=== PATIENT | female | born 1945 | race Caucasian/White ===

== ENCOUNTER 2017-05-16 19:43 | Inpatient (IN) | payer MEDICARE ==
[~2017-05-16] VITALS: Ht 165.1 cm; Wt 79.7 kg
[2017-05-16] MEDS ORDERED: VENL-193 PO (20:00)
[2017-05-16] MEDS ORDERED: VENL50TA44 PO (20:00)
[2017-05-16] MEDS ORDERED: GABA-531 PO (20:00)
[2017-05-16 21:45] LABS: BASOPHILS % (AUTO) 0.4 % (0.0-2.0); HEMATOCRIT 43.3 % (36-46); HEMOGLOBIN 14.5 g/dL (12.0-16.0); LYMPHOCYTES # (AUTO) 1.9 K/uL (1.0-4.8); MEAN CORPUSCULAR HGB CONC 33.6 G/dL (31.0-37.0); MEAN CORPUSCULAR VOLUME 92 fL (80-100); MONOCYTES # (AUTO) 0.7 K/uL (0.1-1.0); MONOCYTES % (AUTO) 9.8 % (2.0-9.0); NEUTROPHILS # (AUTO) 4.4 K/uL (1.8-7.7); NEUTROPHILS % (AUTO) 60.8 % (40.0-70.0); PLATELET COUNT (AUTO) 367 K/uL (150-450); RED BLOOD CELL COUNT(AUTO) 4.69 MIL/uL (4.00-5.20); WHITE BLOOD COUNT (AUTO) 7.2 K/uL (4.5-11.0)
[2017-05-16 21:48] LABS: ANION GAP 7 mmol/L (8-16); CALCIUM, TOTAL 9.5 mg/dL (8.8-10.5); CARBON DIOXIDE 29 mmol/L (22-29); CHLORIDE 102 mmol/L (98-107); CREATININE 0.75 mg/dL (0.60-1.30); GLOMERULAR FILTR. RATE CALC > 60 mL/min (>60); POTASSIUM 4.1 mmol/L (3.5-5.1); SODIUM SERUM 138 mmol/L (136-145); UREA NITROGEN, BLOOD 14 mg/dL (7-18)
[2017-05-16 21:53] LABS: ALANINE AMINOTRANSFERASE 27 U/L (12-78); ALBUMIN 3.8 g/dL (3.4-5.0); ASPARTATE AMINOTRANSFERASE 22 U/L (15-37); BILIRUBIN,TOTAL 0.2 mg/dL (0.1-1.0); TOTAL PROTEIN, SERUM 7.7 g/dL (6.4-8.2)
[2017-05-17] MEDS ORDERED: ZOLPIDEM TARTRATE 10 MG TABLET PO PRN (01:00)
[2017-05-17] MEDS ORDERED: OLANZapine 5 MG RAPDIS TABLET PO PRN (01:00)
[2017-05-17] MEDS ORDERED: LORazepam 2 MG TABLET PO PRN (01:00)
[2017-05-17 01:45] LABS: APPEARANCE,URINE CLOUDY (CLEAR); GLUCOSE, URINE (UA) NEGATIVE (NEGATIVE); KETONES,URINE NEGATIVE (NEGATIVE); LEUKOCYTE ESTERASE ,URINE SMALL (NEGATIVE); OCCULT BLOOD,URINE NEGATIVE (NEGATIVE); PROTEIN,URINE NEGATIVE (NEGATIVE)
[2017-05-17 01:45] LABS: CHOL/HDL RATIO 3.6 (3.9-5.7); THYROID STIMULATING HORMONE 2.65 uIU/mL (0.36-3.74)
[2017-05-17 01:52] LABS: ADD UA MICROSCOPIC YES
[2017-05-17 01:56] LABS: RBC,URINE 0-2 /HPF (0-2); SQUAMOUS EPITHELIAL CELL,UR Few /LPF (None Seen)
[2017-05-17 04:04] VITALS: BP 154/83
[2017-05-17] MEDS ORDERED: PNEUMOCOCCAL VACCINE POLYVALENT 0.5 ML VIAL [PPSV23] IM ONE (04:30)
[2017-05-17] MEDS ORDERED: INFLUENZA VIRUS VACCINE QVS 2017-18 (3YR+)/PF 60 MCG/0.5 ML SYRINGE IM ONE (04:30)
[2017-05-17 08:05] VITALS: BP 135/71
[2017-05-17] MEDS ORDERED: GuaiFENesin/D-METHORPHAN [SUGAR-FREE] 200-20MG/10 ML SYRUP UDCUP PO PRN (10:00)
[2017-05-17] MEDS ORDERED: PROMETHAZINE HCL 25 MG TABLET PO PRN (10:00)
[2017-05-17] MEDS ORDERED: TUBERCULIN, PURIFIED PROTEIN DERIVATIVE 5 TU/0.1 ML SYG ID ONE (10:00)
[2017-05-17] MEDS ORDERED: ACETAMINOPHEN 325 MG TABLET PO PRN ×2 (10:00→18:00)
[2017-05-17] MEDS ORDERED: MAG HYDROX/AL HYDROX/SIMETH ES 30 ML SUSPENSION UDCUP PO PRN (10:00)
[2017-05-17] MEDS ORDERED: LOPERAMIDE HCL 2 MG CAPSULE PO PRN (10:00)
[2017-05-17] MEDS ORDERED: MAGNESIUM HYDROXIDE SUSPENSION 30 ML UDCUP PO PRN (10:00)
[2017-05-17] MEDS ORDERED: HydrOXYzine PAMOATE 50 MG CAPSULE PO PRN (10:00)
[2017-05-17] MEDS: GABAPENTIN 300 MG CAPSULE PO SCH ×2 (14:25→16:08)
[2017-05-17] MEDS: THIAMINE HCL 100 MG TABLET PO SCH (16:08)
[2017-05-17] MEDS: OMEGA-3/DHA/EPA/FISH OIL 500 MG CAPSULE PO SCH (16:09)
[2017-05-17 16:21] VITALS: BP 145/86
[2017-05-17] MEDS ORDERED: IBUPROFEN 400 MG TABLET PO PRN (18:00)
[2017-05-18] MEDS: THIAMINE HCL 100 MG TABLET PO SCH (08:48)
[2017-05-18] MEDS: GABAPENTIN 300 MG CAPSULE PO SCH (08:48)
[2017-05-18] MEDS: OMEGA-3/DHA/EPA/FISH OIL 500 MG CAPSULE PO SCH (08:49)
[2017-05-18] MEDS ORDERED: MULTIVITAMINS WITH MINERALS, THERAPEUTIC TABLET PO SCH (09:00)
[2017-05-18] MEDS ORDERED: VENLAFAXINE HCL 75 MG ER CAPSULE PO SCH (09:00)
[2017-05-18] MEDS ORDERED: FOLIC ACID 1 MG TABLET PO SCH (09:00)
[2017-05-18] MEDS ORDERED: GABA-533 PO (12:34)
[2017-05-18] MEDS ORDERED: VENL75CA55 PO (12:34)
[2017-05-18] MEDS ORDERED: OMEG-116 PO (12:34)
[2017-05-18] MEDS ORDERED: GABAPENTIN 400 MG CAPSULE PO SCH (17:00)
== END 2017-05-18 16:00 | disposition home or self-care (01) | DRG 885 ==
LOC: EMS 19:47 → 3EI 05-17 01:39
PROVIDERS: ADMIT Psychiatry & Neurology Psychiatry; ATTEND Psychiatry & Neurology Psychiatry
DX: F32.2 Major depressive disorder, single episode, severe without psychotic features (principal); R45.851 Suicidal ideations; R63.0 Anorexia; Z91.19 Patient's noncompliance with other medical treatment and regimen; E78.5 Hyperlipidemia, unspecified; Z28.21 Immunization not carried out because of patient refusal; F10.10 Alcohol abuse, uncomplicated; Z68.29 Body mass index [BMI] 29.0-29.9, adult; Z81.8 Family history of other mental and behavioral disorders; G47.9 Sleep disorder, unspecified; Z71.41 Alcohol abuse counseling and surveillance of alcoholic; Y90.9 Presence of alcohol in blood, level not specified
CPT/HCPCS: 84443; 93005; 99285; G0480